=== PATIENT | female | born 2000 | race Caucasian/White ===

== ENCOUNTER 2019-10-18 20:08 | Emergency (ER) | payer MEDICAID ==
[~2019-10-18] VITALS: Ht 162.6 cm; Wt 120.6 kg
--- NOTE | 2019-10-18 21:27 | NUR ---
pt up to rr with steady gait, provided pt with urine cup
--- NOTE | 2019-10-18 21:38 | NUR ---
pt resting on jasmyn, stated 'i have suicidal thoughts my plan is to slit my throat and i have h/x of suicide attempts i have done cutting, tried to hang myself and od in the past with my last attempt august 02". room secured, personal belongings x2 bags placed in security locker, urine sample to lab
[2019-10-18 21:41] LABS: BASOPHILS # (AUTO) 0.07 x10^3/uL (0-0.3); BASOPHILS % (AUTO) 1 % (0-1); EOSINOPHILS % (AUTO) 2 % (1-7); LYMPHOCYTES # (AUTO) 3.53 x10^3/uL (1-6.1); LYMPHOCYTES % (AUTO) 27 % (22-44); MD NO; MEAN CORPUSCULAR HGB CONC 33.4 g/dL (32.4-35.8); MEAN CORPUSCULAR VOLUME 83.9 fL (80-100); MONOCYTES # (AUTO) 1.25 x10^3/uL (0-1.4); MONOCYTES % (AUTO) 10 % (2-9); NEUTROPHILS # (AUTO) 7.96 x10^3/uL (1.8-8.0); NEUTROPHILS % (AUTO) 61 % (42-75); PLATELET COUNT 488 x10^3/uL (130-400); RED BLOOD COUNT 4.76 x10^6/uL (3.82-5.3); RED CELL DISTRIBUTION WIDTH 15.4 % (9.6-15.2)
[2019-10-18] MEDS ORDERED: BUPR-173 PO (21:49)
[2019-10-18] MEDS ORDERED: TRAZ-175 PO (21:49)
[2019-10-18 21:52] LABS: ALANINE AMINOTRANSFERASE 24 U/L (12-78); ALBUMIN 3.5 g/dL (3.4-5.0); ANION GAP 5 mmol/L (5-15); CALCIUM 8.9 mg/dL (8.5-10.1); CHLORIDE 111 mmol/L (98-107); CREATININE 0.79 mg/dL (0.55-1.02)
[2019-10-18 21:53] LABS: SALICYLATE LEVEL < 1.7 mg/dL (2.8-20.0)
[2019-10-18 21:57] LABS: ALKALINE PHOSPHATASE 97 U/L (45-117); BILIRUBIN,TOTAL 0.2 mg/dL (0.2-1.0); TOTAL PROTEIN 8.7 g/dL (6.4-8.2)
--- NOTE | 2019-10-18 22:00 | NUR ---
pt resting on gurney, provided pt with warm blanket, denies other needs at this time, nad, respirations even and unlabored, sitter at doorway for contious monitoring
[2019-10-18 22:08] LABS: AMPHETAMINE SCREEN, URINE Negative (Negative); BARBITURATE SCREEN, URINE Negative (Negative); BENZODIAZEPINE SCREEN, URINE Negative (Negative); CANNABINOID SCREEN, URINE Negative (Negative); COCAINE SCREEN, URINE Negative (Negative); METHADONE SCREEN, URINE Negative (Negative); OPIATE SCREEN, URINE Negative (Negative)
--- NOTE | 2019-10-18 23:12 | NUR ---
soc on telephone, updates given on pt status, h/x, medications and vs. soc to telepsych consult with pt
--- NOTE | 2019-10-18 23:20 | NUR ---
telepsych consult in progress
--- NOTE | 2019-10-18 23:31 | NUR ---
soc on telephone stated does not need to be admitted. will update erp
--- NOTE | 2019-10-18 23:40 | NUR ---
pt up to use telephone, sitter at her side for continous monitoring
[2019-10-19 00:11] VITALS: BP 133/86
--- NOTE | 2019-10-19 00:17 | NUR ---
provided pt with personal belongings x 2 bags for d/c
== END 2019-10-19 00:24 | disposition home or self-care (01) ==
LOC: ED 21:29
DX: F32.1 Major depressive disorder, single episode, moderate (principal)
CPT/HCPCS: 36415; 80053; 80307; 84703; 85025; 99284

== ENCOUNTER 2020-03-22 23:47 | Emergency (ER) | payer MEDICAID ==
[~2020-03-22] VITALS: Ht 162.6 cm; Wt 100.0 kg
[~2020-03-22 23:47] MED LIST: BUPR-173 PO; TRAZ-175 PO
[2020-03-23] MEDS ORDERED: ONDANSETRON ODT 4 MG PO ONE
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
[2020-03-23 00:20] LABS: BASOPHILS # (AUTO) 0.03 x10^3/uL (0-0.3); BASOPHILS % (AUTO) 0 % (0-1); EOSINOPHILS # (AUTO) 0.19 x10^3/uL (0-0.8); EOSINOPHILS % (AUTO) 2 % (1-7); LYMPHOCYTES # (AUTO) 2.16 x10^3/uL (1-6.1); LYMPHOCYTES % (AUTO) 21 % (22-44); MD NO; MEAN CORPUSCULAR HEMOGLOBIN 28.9 pg (27.0-34.8); MEAN CORPUSCULAR HGB CONC 33.1 g/dL (32.4-35.8); MEAN CORPUSCULAR VOLUME 87.2 fL (80-100); MEAN PLATELET VOLUME 9.1 fL (7.4-10.4); MONOCYTES # (AUTO) 0.75 x10^3/uL (0-1.4); MONOCYTES % (AUTO) 7 % (2-9); NEUTROPHILS # (AUTO) 7.11 x10^3/uL (1.8-8.0); NEUTROPHILS % (AUTO) 69 % (42-75); PLATELET COUNT 448 x10^3/uL (130-400); RED BLOOD COUNT 4.59 x10^6/uL (3.82-5.3); RED CELL DISTRIBUTION WIDTH 13.6 % (9.6-15.2)
[2020-03-23 00:31] LABS: ALANINE AMINOTRANSFERASE 21 U/L (12-78); ALBUMIN 3.4 g/dL (3.4-5.0); ANION GAP 9 mmol/L (5-15); CALCIUM 8.5 mg/dL (8.5-10.1); CHLORIDE 112 mmol/L (98-107)
[2020-03-23] MEDS ORDERED: ONDANSETRON ODT 4 MG ONE (00:31)
[2020-03-23 00:32] LABS: SALICYLATE LEVEL < 1.7 mg/dL (2.8-20.0)
[2020-03-23 00:34] LABS: ALKALINE PHOSPHATASE 97 U/L (45-117); BILIRUBIN,TOTAL 0.1 mg/dL (0.2-1.0); CREATININE 0.59 mg/dL (0.55-1.02); TOTAL PROTEIN 8.1 g/dL (6.4-8.2)
[2020-03-23] MEDS ORDERED: PRAZ2CAP2 PO (00:41)
[2020-03-23] MEDS ORDERED: FLUO40CA2 PO (00:41)
[2020-03-23] MEDS ORDERED: BUSP5TAB2 PO (00:41)
[2020-03-23] MEDS ORDERED: DOXAPIN PO (00:41)
--- NOTE | 2020-03-23 00:42 | NUR ---
PT RESTING ON [email or web address] AT THIS TIME, CONVERSING WITH RN, FCS no SOB. WCTM.
--- NOTE | 2020-03-23 01:42 | NUR ---
late entry: pt resting in gurney, eyes closed, vss, nad. no change in condition. wctm.
--- NOTE | 2020-03-23 02:13 | NUR ---
pt resting in gurney, appears comfortable, eyes closed, resp heard and wnl, wctm.
[2020-03-23 02:14] VITALS: BP 134/80
--- NOTE | 2020-03-23 02:39 | NUR ---
Patient given discharge instructions and they have confirmed that they understand the instructions. Patient ambulatory with steady gait. GIVEN SOCKS FOR COMFORT, NO PERSONAL BELONGINGS LEFT IN ROOM AT TIME OF DC. NAD, P/W/D, VSS. DENIES ADDITIONAL NEEDS OR QUESTIONS AT THIS TIME.
== END 2020-03-23 02:40 | disposition home or self-care (01) ==
LOC: ED 03-23 02:10
DX: K29.20 Alcoholic gastritis without bleeding (principal); F10.220 Alcohol dependence with intoxication, uncomplicated; R11.10 Vomiting, unspecified; Y90.0 Blood alcohol level of less than 20 mg/100 ml
CPT/HCPCS: 36415; 80053; 80307; 83690; 84703; 85025; 99283

== ENCOUNTER 2020-04-14 22:09 | Emergency (ER) | payer MEDICAID ==
[~2020-04-14] VITALS: Ht 162.6 cm; Wt 120.0 kg
[~2020-04-14 22:09] MED LIST changes: +BUSP5TAB2 PO; +DOXAPIN PO; +FLUO40CA2 PO; +PRAZ2CAP2 PO
[2020-04-14 22:15] VITALS: BP 138/87
[2020-04-14 22:31] LABS: BASOPHILS # (AUTO) 0.11 x10^3/uL (0-0.3); BASOPHILS % (AUTO) 1 % (0-1); EOSINOPHILS # (AUTO) 0.72 x10^3/uL (0-0.8); EOSINOPHILS % (AUTO) 6 % (1-7); LYMPHOCYTES # (AUTO) 3.12 x10^3/uL (1-6.1); LYMPHOCYTES % (AUTO) 24 % (22-44); MD NO; MEAN CORPUSCULAR HEMOGLOBIN 28.6 pg (27.0-34.8); MEAN CORPUSCULAR HGB CONC 32.7 g/dL (32.4-35.8); MEAN CORPUSCULAR VOLUME 87.5 fL (80-100); MEAN PLATELET VOLUME 8.5 fL (7.4-10.4); MONOCYTES # (AUTO) 1.25 x10^3/uL (0-1.4); MONOCYTES % (AUTO) 10 % (2-9); NEUTROPHILS # (AUTO) 7.95 x10^3/uL (1.8-8.0); NEUTROPHILS % (AUTO) 60 % (42-75); PLATELET COUNT 457 x10^3/uL (130-400); RED CELL DISTRIBUTION WIDTH 13.9 % (9.6-15.2)
[2020-04-14 22:42] LABS: ALBUMIN 3.6 g/dL (3.4-5.0); ANION GAP 5 mmol/L (5-15); CALCIUM 8.6 mg/dL (8.5-10.1); CHLORIDE 109 mmol/L (98-107); CREATININE 0.65 mg/dL (0.55-1.02); SALICYLATE LEVEL < 1.7 mg/dL (2.8-20.0)
[2020-04-14 22:55] LABS: AMPHETAMINE SCREEN, URINE Negative (Negative); BARBITURATE SCREEN, URINE Negative (Negative); BENZODIAZEPINE SCREEN, URINE Negative (Negative); CANNABINOID SCREEN, URINE Positive (Negative); COCAINE SCREEN, URINE Negative (Negative); METHADONE SCREEN, URINE Negative (Negative); OPIATE SCREEN, URINE Negative (Negative)
--- NOTE | 2020-04-14 22:56 | NUR ---
PT RESTING ON GURNEY, HEAD TWITCHING HAS STOPPED. 1 BAG OF BELONGINGS PLACED IN TUB IN LOCKER. ROOM SECURED AND AWAITING TELEPSYCH EVAL.
[2020-04-14 23:01] LABS: HCG UR SG 1.032 (1.003-1.030)
--- NOTE | 2020-04-14 23:42 | NUR ---
PT SPEAKING WITH TELEPSYCH MD AT THIS TIME.
--- NOTE | 2020-04-15 00:52 | NUR ---
PT SLEEPING ON GURNEY, NO DISTRESS NOTED. ROOM SECURED, PT MONITORED.
--- NOTE | 2020-04-15 01:57 | NUR ---
BREAK RN: PATIENT RESTING IN BED: EVEN UNLABORED RESPIRATIONS, NO NOTED NEEDS AT THIS TIME.
== END 2020-04-15 02:51 | disposition home or self-care (01) ==
LOC: ED 22:54
DX: F41.1 Generalized anxiety disorder (principal); R45.850 Homicidal ideations; F22 Delusional disorders; F17.210 Nicotine dependence, cigarettes, uncomplicated
CPT/HCPCS: 36415; 80048; 80307; 81025; 82040; 85025; 99283; 99406

== ENCOUNTER 2020-04-29 16:02 | Emergency (ER) | payer MEDICAID ==
[~2020-04-29] VITALS: Ht 162.6 cm; Wt 123.5 kg
--- NOTE | 2020-04-29 18:00 | NUR ---
PROVIDER AT BEDSIDE FOR ASSESSMENT.
--- NOTE | 2020-04-29 18:13 | NUR ---
TASK RN: PT AMBULATORY WITH STEADY GAIT TO ROOM 07. NADN. BEDSIDE REPORT TO AMBER CHAN.
--- NOTE | 2020-04-29 18:54 | NUR ---
REPORT GIVEN TO HERMILO CLARK. ALL TESTS RESULTED. PT IS UP FOR RECHECK AT THIS TIME.
--- NOTE | 2020-04-29 18:57 | NUR ---
REPORT RECEIVED FROM AMBER CHAN
[2020-04-29 19:10] VITALS: BP 137/77
== END 2020-04-29 19:12 | disposition home or self-care (01) ==
LOC: ED 19:00
DX: S81.812A Laceration without foreign body, left lower leg, initial encounter (principal); X58.XXXA Exposure to other specified factors, initial encounter; Y93.89 Activity, other specified; Y92.488 Other paved roadways as the place of occurrence of the external cause; Y99.8 Other external cause status
CPT/HCPCS: 99283